=== PATIENT | male | born 1985 | race Two or more races ===

== ENCOUNTER 2021-05-22 18:51 | Emergency (ER) | payer BC ==
[2021-05-22 21:16] VITALS: BP 173/113; PULSE 68
[2021-05-22 22:30] LABS: ACETAMINOPHEN 0 ug/mL (10-30)
--- NOTE | 2021-05-22 22:53 | EDM.PDOCBH ---
ED HPI GENERAL MEDICAL PROBLEM - General Chief Complaint: Behavioral/Psych Stated Complaint: SUICIDAL IDEATIONS Time Seen by Provider: 05/22/21 21:32 Source of Information: Reports: Patient History Limitations: Reports: No Limitations - History of Present Illness INITIAL COMMENTS - FREE TEXT/NARRATIVE: 35-year-old male presents the emergency department this evening with complaints of suicidal thoughts. He states that approximately 1 month ago his fiance broke up with him and he feels he is now at his breaking point and her all-time low in his life. He states he feels as though he is having a breakdown. He has never had a history of anxiety or depression. He does not take any psychiatric medications. He states he lives with his brother and did not think he was home this evening. He started researching on the most effective way to kill himself. He states he texted his brother kenyatta and was going to take a fillet knife and cut his arm. His brother was still home and burst into his room to stop him. Patient was not agreeable to come to the emergency department for evaluation. States he does not want to feel like a burden to anyone else so he has not asked for help prior to this. He denies any recreational drug use. He denies any cigarette smoking. He states he does drink alcohol occasionally. Upon examination, patient is very tearful. He is very remorseful for having thoughts of trying to harm himself. His brother is at the bedside with him. He states he would not attempt to harm himself now should I let him be discharged to home. And his brother states he would keep an eye on him. Patient does not want to be admitted to psychiatric hospital at this time. However he is willing to go to [facility] open enrollment first thing tomorrow at 8 AM for help with his depression. - Related Data Allergies Allergy/AdvReac Type Severity Reaction Status Date / Time No Known Allergies Allergy Verified 11/01/14 21:21 Home Meds: Home Meds . [No Known Home Meds] 05/22/21 [History] Past Medical History Endocrine/Metabolic History: Reports: Other (See Below) Other Endocrine/Metabolic History: type 2 diabetic but with weight loss is no longer diabetic - Infectious Disease History Infectious Disease History: Reports: None - Past Surgical History GI Surgical History: Reports: Bariatric Procedure, Cholecystectomy Other GI Surgeries/Procedures: gastric bypass Social & Family History - Tobacco Use Tobacco Use Status *Q: Never Tobacco User - Caffeine Use Caffeine Use: Reports: Energy Drinks, Soda - Recreational Drug Use Recreational Drug Use: No ED ROS GENERAL - Review of Systems Review Of Systems: Comprehensive ROS is negative, except as noted in HPI. ED EXAM, BEHAVIORAL HEALTH - Physical Exam Exam: See Below Exam Limited By: No Limitations General Appearance: Alert, WD/WN, No Apparent Distress Ears: Normal External Exam, Hearing Grossly Normal Nose: Normal Inspection Throat/Mouth: Normal Inspection, Normal Lips, Normal Voice, No Airway Compromise Head: Atraumatic Neck: Normal Inspection, Supple Respiratory/Chest: No Respiratory Distress, Lungs Clear, Normal Breath Sounds, No Accessory Muscle Use, Chest Non-Tender Cardiovascular: Normal Peripheral Pulses, Regular Rate, Rhythm, No Edema, No Murmur GI/Abdominal: Normal Bowel Sounds, Soft, Non-Tender, No Distention (Male) Exam: Deferred Rectal (Males) Exam: Deferred Back Exam: Normal Inspection, Full Range of Motion Extremities: Normal Inspection Neurological: Alert, Normal Mood/Affect, Normal Cognition, Oriented x 3 Psychiatric: Alert, Oriented, Tearful, Suicidal Thoughts. No: Homicidal Thoughts Skin Exam: Warm, Dry, Intact, No rash #1 Interpretation EKG Date: 05/22/21 Time: 21:43 Rhythm: NSR Rate (Beats/Min): 66 Lee: Normal P-Wave: Present QRS: Normal ST-T: Normal QT: Normal Comparison: NA - No Prior EKG COURSE, BEHAVIORAL HEALTH COMP - Course Vital Signs: Last Vital Signs Temp 98.7 F 05/22/21 21:13 Pulse 68 05/22/21 21:13 Resp 20 05/22/21 21:13 BP 173/113 H 05/22/21 21:13 Pulse Ox 98 05/22/21 21:13 Orders, Labs, Meds: Active Orders 24 hr Category Date Time Status Communication Order [RC] ASDIRECTED Care 05/22/21 21:33 Active Communication Order [RC] ASDIRECTED Care 05/22/21 21:33 Active Communication Order [RC] ASDIRECTED Care 05/22/21 21:33 Active Suicide Precautions [RC] .Per Facility Policy Care 05/22/21 21:11 Active DRUG SCREEN, URINE [URCHEM] Stat Lab 05/22/21 21:33 Ordered Laboratory Tests 05/22/21 05/22/21 05/22/21 Range/Units 21:30 21:46 21:46 WBC 8.75 (4.23-9.07) K/mm3 RBC 5.45 (4.63-6.08) M/mm3 Hgb 16.9 (13.7-17.5) gm/dl Hct 49.6 (40.1-51.0) % MCV 91.0 (79.0-92.2) fl MCH 31.0 (25.7-32.2) pg MCHC 34.1 (32.2-35.5) g/dl RDW Std Deviation 45.4 H (35.1-43.9) fL Plt Count 248 (163-337) K/mm3 MPV 10.5 (9.4-12.3) fl Neut % (Auto) 47.5 (34.0-67.9) % Lymph % (Auto) 37.3 (21.8-53.1) % Jackson % (Auto) 12.1 (5.3-12.2) % Eos % (Auto) 2.5 (0.8-7.0) Baso % (Auto) 0.3 (0.1-1.2) % Neut # (Auto) 4.15 (1.78-5.38) K/mm3 Lymph # (Auto) 3.26 (1.32-3.57) K/mm3 Jackson # (Auto) 1.06 H (0.30-0.82) K/mm3 Eos # (Auto) 0.22 (0.04-0.54) K/mm3 Baso # (Auto) 0.03 (0.01-0.08) K/mm3 Sodium 143 (136-145) mEq/L Potassium 3.9 (3.5-5.1) mEq/L Chloride 106 (98-107) mEq/L Carbon Dioxide 26 (21-32) mEq/L Anion Gap 14.9 (5-15) BUN 11 (7-18) mg/dL Creatinine 1.0 (0.7-1.3) mg/dL Est Cr Clr Drug Dosing 103.10 mL/min Estimated GFR (MDRD) > 60 (>60) mL/min BUN/Creatinine Ratio 11.0 L (14-18) Glucose 120 H (70-99) mg/dL Calcium 8.4 L (8.5-10.1) mg/dL Total Bilirubin 0.7 (0.2-1.0) mg/dL AST 42 H (15-37) U/L ALT 84 H (16-63) U/L Alkaline Phosphatase 83 (46-116) U/L Total Protein 7.5 (6.4-8.2) g/dl Albumin 3.9 (3.4-5.0) g/dl Globulin 3.6 gm/dL Albumin/Globulin Ratio 1.1 (1-2) TSH 3rd Generation 1.974 (0.358-3.74) uIU/mL Salicylates (2.8-20) mg/dL Acetaminophen 0 L (10-30) ug/mL Ethyl Alcohol 0.00 (0.00) gm% SARS-CoV-2 RNA (JILLIAN) Negative (NEGATIVE) 05/22/21 Range/Units 21:46 WBC (4.23-9.07) K/mm3 RBC (4.63-6.08) M/mm3 Hgb (13.7-17.5) gm/dl Hct (40.1-51.0) % MCV (79.0-92.2) fl MCH (25.7-32.2) pg MCHC (32.2-35.5) g/dl RDW Std Deviation (35.1-43.9) fL Plt Count (163-337) K/mm3 MPV (9.4-12.3) fl Neut % (Auto) (34.0-67.9) % Lymph % (Auto) (21.8-53.1) % Jackson % (Auto) (5.3-12.2) % Eos % (Auto) (0.8-7.0) Baso % (Auto) (0.1-1.2) % Neut # (Auto) (1.78-5.38) K/mm3 Lymph # (Auto) (1.32-3.57) K/mm3 Jackson # (Auto) (0.30-0.82) K/mm3 Eos # (Auto) (0.04-0.54) K/mm3 Baso # (Auto) (0.01-0.08) K/mm3 Sodium (136-145) mEq/L Potassium (3.5-5.1) mEq/L Chloride (98-107) mEq/L Carbon Dioxide (21-32) mEq/L Anion Gap (5-15) BUN (7-18) mg/dL Creatinine (0.7-1.3) mg/dL Est Cr Clr Drug Dosing mL/min Estimated GFR (MDRD) (>60) mL/min BUN/Creatinine Ratio (14-18) Glucose (70-99) mg/dL Calcium (8.5-10.1) mg/dL Total Bilirubin (0.2-1.0) mg/dL AST (15-37) U/L ALT (16-63) U/L Alkaline Phosphatase (46-116) U/L Total Protein (6.4-8.2) g/dl Albumin (3.4-5.0) g/dl Globulin gm/dL Albumin/Globulin Ratio (1-2) TSH 3rd Generation (0.358-3.74) uIU/mL Salicylates 1.0 L (2.8-20) mg/dL Acetaminophen (10-30) ug/mL Ethyl Alcohol (0.00) gm% SARS-CoV-2 RNA (JILLIAN) (NEGATIVE) Re-Assessment/Re-Exam: Reviewed the patient's lab studies and they're all essentially unremarkable. Patient again does not want to go to inpatient psychiatric facility. His brother states he will keep an eye on him tonight and they will go to [facility] first thing in the morning. The patient does give me a verbal promise that he will not try to harm himself and if he does have thoughts of harming himself again he will come back to the emergency department. Departure - Departure Time of Disposition: 23:03 Disposition: Home, Self-Care 01 Condition: Fair Clinical Impression: Depressive disorder - Discharge Information Instructions: Managing Depression, Adult Referrals: PCP,None [Primary Care Provider] - Forms: ED Department Discharge Additional Instructions: You were seen in the emergency department this evening after having suicidal thoughts. Lab studies were completed and were all essentially unremarkable. After evaluation you gave me verbal promise that you would not try to harm yourself this evening and that you would go to [facility] first thing tomorrow morning. They open at 8 AM for open enrollment. Should you develop thoughts of harming yourself, do not hesitate returning to the emergency department for evaluation. Sepsis Event Note (ED) - Focused Exam Vital Signs: Vital Signs Temp Pulse Resp BP Pulse Ox 05/22/21 21:13 98.7 F 68 20 173/113 H 98 - My Orders Last 24 Hours: My Active Orders 05/22/21 21:11 Suicide Precautions [RC] .Per Facility Policy 05/22/21 21:33 Communication Order [RC] ASDIRECTED Communication Order [RC] ASDIRECTED Communication Order [RC] ASDIRECTED DRUG SCREEN, URINE [URCHEM] Stat - Assessment/Plan Last 24 Hours: My Active Orders 05/22/21 21:11 Suicide Precautions [RC] .Per Facility Policy 05/22/21 21:33 Communication Order [RC] ASDIRECTED Communication Order [RC] ASDIRECTED Communication Order [RC] ASDIRECTED DRUG SCREEN, URINE [URCHEM] Stat
== END 2021-05-22 23:16 | disposition home or self-care (01) ==
LOC: JD.ED 18:51 → SUPCPDRO 18:51 → JD.ED 23:16
DX: F32.A Depression, unspecified (principal); Z20.822 Contact with and (suspected) exposure to COVID-19
CPT/HCPCS: 36415; 80053; 80143; 80179; 80307; 84443; 85025; 93005; 99284-25; U0002